=== PATIENT | female | born 1960 | race Caucasian/White ===

== ENCOUNTER 2018-10-20 05:40 | Day surgery (SDC) | payer OTHER ==
[~2018-10-20] VITALS: Ht 160 cm; Wt 72.6 kg
[2018-10-20] MEDS ORDERED: CEFAZOLIN SOD 1 GM/ ISO 50 ML PREMIX IV ONE (07:00)
[2018-10-20] MEDS ORDERED: IOHEXOL 50 ML IV ONE (07:54)
[2018-10-20] MEDS ORDERED: POLYMYXIN 500,000/BACIT.10,000 UNITS in NS IRR 1 L IR ONE (07:57)
[2018-10-20] MEDS ORDERED: GLYCOPYRROLATE 0.2 MG/ML VIAL IJ ONE (09:40)
[2018-10-20] MEDS ORDERED: ROCURONIUM BROMIDE 10 MG/ML (ZEMURON) IV ONE (09:40)
[2018-10-20] MEDS ORDERED: SEVOFLURANE 15 MIN GAS INH ONE (09:40)
[2018-10-20] MEDS ORDERED: IOPAMIDOL 50 ML VIAL IV ONE (09:40)
[2018-10-20] MEDS ORDERED: NS IRRIG SOLN 1000 ML IR ONE (09:40)
[2018-10-20] MEDS ORDERED: BUPIVACAINE /PF 0.25% 30 ML VIAL INJ ONE (09:40)
[2018-10-20] MEDS ORDERED: ONDANSETRON HCL 4 MG/2 ML VIAL IVP ONE (09:40)
[2018-10-20] MEDS ORDERED: fentaNYL CITRATE 250 MCG/5 ML AMP IV ONE (09:40)
[2018-10-20] MEDS ORDERED: PROPOFOL 200MG/ 20ML VIAL (DIPRIVAN) IV ONE (09:40)
[2018-10-20] MEDS ORDERED: MIDAZOLAM HCL 5 MG/5 ML VIAL IVP ONE (09:40)
[2018-10-20] MEDS ORDERED: NS 1000 ML IV.SOLN IV ONE (09:40)
[2018-10-20] MEDS ORDERED: LR 1,000 ML IV.SOLN IV ONE (09:40)
[2018-10-20] MEDS ORDERED: NEOSTIGMINE METHYLSULFATE 1 MG/ML, 10 ML VIAL IVP ONE (09:40)
[2018-10-20] MEDS ORDERED: KETOROLAC TROMETHAMINE 30 MG VIAL IVP ONE (09:40)
[2018-10-20] MEDS ORDERED: FLUMAZENIL 0.1 MG/ML IVP ONE (09:40)
[2018-10-20] MEDS ORDERED: LR 1,000 ML IV SCH (10:16)
[2018-10-20] MEDS ORDERED: MORPHINE 4 MG/ML INJ. SYRINGE IVP PRN ×3 (10:30)
[2018-10-20] MEDS ORDERED: METOCLOPRAMIDE HCL 10 MG/2 ML VIAL IVP PRN (10:30)
[2018-10-20] MEDS ORDERED: D5/0.45 NS 1,000 ML IV SCH (10:37)
[2018-10-20] MEDS ORDERED: HYDROcodone/ACETAMIN 5-325 MG TAB (NORCO/ VICODIN) PO PRN ×2 (10:45)
[2018-10-20] MEDS ORDERED: HYDROmorphone 1 MG INJ. 1 MG/ML AMPUL IVP PRN (10:45)
[2018-10-20] MEDS ORDERED: METOCLOPRAMIDE HCL 10 MG/2 ML VIAL ONE ×2 (11:43→12:36)
[2018-10-20] MEDS ORDERED: ONDANSETRON HCL 4 MG/2 ML VIAL ONE (13:02)
[2018-10-20] MEDS ORDERED: PROMETHAZINE INJ.Non-Formulary 25 MG/ML AMP IM PRN (13:30)
[2018-10-20] MEDS ORDERED: PROMETHAZINE INJ.Non-Formulary 25 MG/ML AMP ONE (13:34)
[2018-10-20 13:59] VITALS: BP_SYST 112
== END 2018-10-20 15:55 | disposition home or self-care (01) ==
LOC: SDS 05:40 → SMU 05:40 → SDS 15:55
PROVIDERS: ATTEND Colon & Rectal Surgery
DX: K80.10 Calculus of gallbladder with chronic cholecystitis without obstruction (principal); K42.0 Umbilical hernia with obstruction, without gangrene; K21.9 Gastro-esophageal reflux disease without esophagitis; M79.7 Fibromyalgia; Z98.890 Other specified postprocedural states; Z79.899 Other long term (current) drug therapy
CPT/HCPCS: 47563; 49587; 74300; 88304; C1727; C1758; J0690; J1885; J2250; J2405; J2550; J2704; J2710; J2765; J3010; J3490 ×3; J7030; J7120; Q9967 ×2

== ENCOUNTER 2023-07-05 12:39 | Emergency (ER) | payer OTHER ==
[~2023-07-05] VITALS: Ht 165.1 cm; Wt 71.7 kg
[2023-07-05 13:00] VITALS: BP_SYST 127; PULSE 94; RESP 16; TEMP 98; O2SAT 97
== END 2023-07-05 18:39 | disposition home or self-care (01) ==
LOC: SED 12:39
DX: N60.01 Solitary cyst of right breast (principal); Z88.8 Allergy status to other drugs, medicaments and biological substances; Z79.899 Other long term (current) drug therapy
CPT/HCPCS: 71045; 99284